=== PATIENT | male | born 1940 | race American Indian/Alaskan Native ===

== ENCOUNTER 2017-05-26 12:40 | Emergency (ER) | payer MEDICARE ==
--- NOTE | 2017-05-26 14:55 | Emergency Department Report ---
Chief Complaint: Alcohol Stated Complaint: HIGH BP Time Seen by Provider: 05/26/17 14:54 - HPI History of Present Illness: Daughter brought patient to the emergency room for the patient sits all day without eating. She said that he's been drinking gin all day for over 35 years. She says he can drink anywhere from 1 pint to a liter per day with beer. Patient denies smoking. Reports that the patient is incontinent and refusing to take medication. Patient does not have a primary care doctor. Patient reports that he is dizzy with blurred vision but denies any headache at present but reports that he gets headaches sometimes. Denies any chest pain at present. Pain is 0-10 at present. Patient walks without a cane sometimes. Daughter said that patient sometime is aggressive and is noncompliant. He has a history of high blood pressure and his blood pressure today is 199/107. He denies any chest pain or shortness of breath at present. Denies any abdominal pain. Last all clot intake was this morning per patient. Denies any bleeding in rectally, nasally, orally or from any orifices in his body. - ROS Review of Systems: All systems are negative unless stated in HPI above - Exam Vital Signs: Vital Signs 05/26/17 13:33 Temperature 98 F Pulse Rate 87 Respiratory 20 Rate Blood Pressure 199/107 O2 Sat by Pulse 99 Oximetry Physical Exam: This is a 76-year-old male well-nourished well-developed in no acute distress. Abdomen: Nontender to palpate in all quadrants. Normal bowel sounds and no CVA tenderness Mini neurological exam: GCS of 15, alert and oriented 3. Speech is clear and no facial drooping. Eyes: Nonicteric sclera, pupils are equal and reactive to light bilaterally and no conjunctival injection. EOM intact bilaterally. MSE screening note: Focused history and physical exam performed. Due to findings the following was ordered:see mdm ED Medical Decision Making - Medical Decision Making MDM: Patient screened by provider in triage area. Appropriate protocol initiated and patient to be seen in main ED by provider ED Disposition for MSE Condition: Stable
[2017-05-26 15:38] LABS: Basophils % (Auto) 0.6 % (0.0-1.8); Eosinophils % (Auto) 0.2 % (0.0-4.3); Hematocrit 41.6 % (35.5-45.6); Hemoglobin 13.3 gm/dl (11.8-15.2); Mean Corpuscular HGB Conc 32 % (32-34); Mean Corpuscular Hemoglobin 29 pg (28-32); Mean Corpuscular Volume 90 fl (84-94); Platelet Count 300 K/mm3 (140-440); Red Blood Count 4.64 M/mm3 (3.65-5.03)
--- NOTE | 2017-05-26 15:42 | Cat Scan Report ---
CT scan of head without IV contrast: History: Lightheaded. Findings: Ventricles are midline in location with moderate dilatation of ventricles secondary to moderate volume loss bilaterally. Periventricular area of low attenuation. Focal area of low attenuation left benjamin radiata probably related to chronic lacunar infarct. No evidence of acute ischemia or hemorrhage. No extra axial fluid collection. Normal brainstem and cerebellum. Normal sinuses and mastoid air cells Impression: No evidence of acute ischemia. Moderate volume loss. Small vessel ischemic changes.
[2017-05-26 15:49] LABS: Creatine Kinase MB 2.7 ng/mL (0.0-4.0); INR 0.99 (0.87-1.13)
[2017-05-26 15:50] LABS: Partial Thromboplastin Time 29.1 Sec. (24.2-36.6)
[2017-05-26 15:51] LABS: Alanine Aminotransferase 9 units/L (7-56); Alkaline Phosphatase 77 units/L (35-129); Anion Gap 17 mmol/L; BUN/Creatinine Ratio 10; Blood Urea Nitrogen 7 mg/dL (9-20); Calcium 9.2 mg/dL (8.4-10.2); Carbon Dioxide 26 mmol/L (22-30); Chloride 97.3 mmol/L (98-107); Glucose 83 mg/dL (75-100); Potassium 3.9 mmol/L (3.6-5.0); Sodium 136 mmol/L (137-145)
[2017-05-26] MEDS ORDERED: APRESOLINE IV ONE (23:43)
[2017-05-27 01:33] LABS: Urine Drugs of Abuse Note Disclamer
[2017-05-27 01:40] LABS: Bilirubin,Urine NEG (Negative); Blood,Urine NEG (Negative); Ketones,Urine TR mg/dL (Negative); Leukocyte Esterase,Urine NEG (Negative); Mucus,Urine 1+ /HPF; Nitrite,Urine NEG (Negative); Protein,Urine <15 mg/dL mg/dL (Negative); Urobilinogen,Urine < 2.0 mg/dL (<2.0)
--- NOTE | 2017-05-27 02:29 | Emergency Department Report ---
HPI <ADAM PRIDE - Last Filed: 05/27/17 13:01> - HPI HPI: This is a 76-year-old Afro-Al[place]ian male presents to the emergency department along with his daughter and son-in-law with the complaint of the inability to continue taking care of him at home and requesting some help with his alcoholism. The daughter says that he sits at home all day without eating and just drinks gin. He refuses to take any medications, does not eat much food and has urinary incontinence. He presents with very elevated blood pressure and does have history of hypertension but does not take any medications for it. He has not seen a primary care physician in many years. He does not use tobacco or any illicit drugs. The patient has about a AAO [address] but not time and family says that this is his baseline mental status. The patient himself just says that he has some dizziness but otherwise no other complaints. <ANJU MCDONOUGH - Last Filed: 05/28/17 16:14> - General Chief Complaint: Alcohol Time Seen by Provider: 05/26/17 14:54 ED Past Medical Hx - Past Medical History Previous Medical History?: Yes Hx Hypertension: Yes - Social History Smoking Status: Never Smoker Substance Use Type: Alcohol <ANJU MCDONOUGH - Last Filed: 05/28/17 16:14> ED Review of Systems ROS: Stated complaint: HIGH BP Other details as noted in HPI <ADAM PRIDE - Last Filed: 05/27/17 13:01> ROS: Stated complaint: HIGH BP Other details as noted in HPI Comment: All other systems reviewed and negative Constitutional: denies: chills, fever Eyes: denies: eye pain, eye discharge, vision change ENT: denies: ear pain, throat pain Respiratory: denies: cough, shortness of breath, wheezing Cardiovascular: denies: chest pain, palpitations Gastrointestinal: denies: abdominal pain, nausea, diarrhea Genitourinary: denies: urgency, dysuria Musculoskeletal: denies: back pain, joint swelling, arthralgia Skin: denies: rash, lesions Neurological: other (dizziness). denies: headache, paresthesias <ANJU MCDONOUGH - Last Filed: 05/28/17 16:14> Physical Exam - Physical Exam Vital Signs: Vital Signs 05/26/17 05/26/17 05/27/17 13:33 22:48 00:05 Temperature 98 F 98.1 F 98.1 F Pulse Rate 87 72 63 Respiratory 20 18 16 Rate Blood Pressure 199/107 217/111 207/96 Blood Pressure 207/96 [Left] O2 Sat by Pulse 99 100 100 Oximetry 05/27/17 05/27/17 05/27/17 01:07 05:30 08:33 Temperature 98.3 F 97.4 F L 97.8 F Pulse Rate 79 100 H 92 H Respiratory 16 16 18 Rate Blood Pressure Blood Pressure 138/75 134/70 138/92 [Left] O2 Sat by Pulse 99 97 100 Oximetry 05/27/17 11:54 Temperature 98.6 F Pulse Rate 94 H Respiratory 18 Rate Blood Pressure Blood Pressure 144/88 [Left] O2 Sat by Pulse 100 Oximetry <ADAM PRIDE - Last Filed: 05/27/17 13:01> - Physical Exam Vital Signs: Vital Signs 05/26/17 05/26/17 05/27/17 13:33 22:48 00:05 Temperature 98 F 98.1 F 98.1 F Pulse Rate 87 72 63 Respiratory 20 18 16 Rate Blood Pressure 199/107 217/111 207/96 Blood Pressure 207/96 [Left] O2 Sat by Pulse 99 100 100 Oximetry 05/27/17 01:07 Temperature 98.3 F Pulse Rate 79 Respiratory 16 Rate Blood Pressure Blood Pressure 138/75 [Left] O2 Sat by Pulse 99 Oximetry Physical Exam: GENERAL: The patient is well-developed well-nourished. HENT: Normocephalic. Atraumatic. Patient has moist mucous membranes. EYES: Extraocular motions are intact. Pupils equal reactive to light bilaterally. NECK: Supple. Trachea is midline. CHEST/LUNGS: Clear to auscultation. There is no respiratory distress noted. HEART/CARDIOVASCULAR: Regular. There is no tachycardia. There is no gallop rub or murmur. ABDOMEN: Abdomen is soft, nontender. Patient has normal bowel sounds. There is no abdominal distention. SKIN: Skin is warm and dry. NEURO: The patient is awake, alert. AAO 2. The patient is cooperative. The patient has no focal neurologic deficits. The patient has normal speech. MUSCULOSKELETAL: There is no tenderness or deformity. There is no limitation range of motion. There is no evidence of acute injury. <ANJU MCDONOUGH - Last Filed: 05/28/17 16:14> ED Course Vital Signs 05/26/17 05/26/17 05/27/17 13:33 22:48 00:05 Temperature 98 F 98.1 F 98.1 F Pulse Rate 87 72 63 Respiratory 20 18 16 Rate Blood Pressure 199/107 217/111 207/96 Blood Pressure 207/96 [Left] O2 Sat by Pulse 99 100 100 Oximetry 05/27/17 05/27/17 05/27/17 01:07 05:30 08:33 Temperature 98.3 F 97.4 F L 97.8 F Pulse Rate 79 100 H 92 H Respiratory 16 16 18 Rate Blood Pressure Blood Pressure 138/75 134/70 138/92 [Left] O2 Sat by Pulse 99 97 100 Oximetry 05/27/17 11:54 Temperature 98.6 F Pulse Rate 94 H Respiratory 18 Rate Blood Pressure Blood Pressure 144/88 [Left] O2 Sat by Pulse 100 Oximetry <ADAM PRIDE - Last Filed: 05/27/17 13:01> Vital Signs 05/26/17 05/26/17 05/27/17 13:33 22:48 00:05 Temperature 98 F 98.1 F 98.1 F Pulse Rate 87 72 63 Respiratory 20 18 16 Rate Blood Pressure 199/107 217/111 207/96 Blood Pressure 207/96 [Left] O2 Sat by Pulse 99 100 100 Oximetry 05/27/17 01:07 Temperature 98.3 F Pulse Rate 79 Respiratory 16 Rate Blood Pressure Blood Pressure 138/75 [Left] O2 Sat by Pulse 99 Oximetry <ANJU MCDONOUGH - Last Filed: 05/28/17 16:14> ED Medical Decision Making - Lab Data Result diagrams: 05/26/17 15:03 05/26/17 15:03 <ADAM PRIDE - Last Filed: 05/27/17 13:01> - Lab Data Result diagrams: 05/26/17 15:03 05/26/17 15:03 - Radiology Data Radiology results: report reviewed CT scan of head without IV contrast: History: Lightheaded. Findings: Ventricles are midline in location with moderate dilatation of ventricles secondary to moderate volume loss bilaterally. Periventricular area of low attenuation. Focal area of low attenuation left benjamin radiata probably related to chronic lacunar infarct. No evidence of acute ischemia or hemorrhage. No extra axial fluid collection. Normal brainstem and cerebellum. Normal sinuses and mastoid air cells Impression: No evidence of acute ischemia. Moderate volume loss. Small vessel ischemic changes. EXAM: US TESTICULAR DOPPLER COMP HISTORY: Testicular pain. TECHNIQUE: Directed real-time grayscale and color Doppler ultrasound examination of the scrotum was performed. No prior studies are available for comparison. FINDINGS: The right testis measures 2.6 x 2.2 x 2.8 cm, and is homogeneous in echotexture, without discrete lesion. The right epididymal head measures approximately 1.5 cm. The left testis measures 2.8 x 1.8 x 2.6 cm, and is homogeneous in echotexture, without discrete lesion. The left epididymal head measures approximately 1.2 cm. There is a cyst in the left epididymal head, measuring 0.6 x 0.5 x 0.4 cm. Appropriate color vascularity seen within both testes, with normal appearing waveforms. There is evidence of torsion or epididymo-orchitis. There is a small right hydrocele. IMPRESSION: 1. No evidence of testicular torsion or epididymo-orchitis. 2. Subcentimeter left epididymal head cyst. Small right hydrocele. - Medical Decision Making This is a 76-year-old male who presents up with his family for possible placement or for alcohol rehabilitation. The patient is AAO 2 but that is his baseline per the family. His alcohol level was negative and there are no signs of withdrawal. He does not appear to have any suicidal or homicidal ideations and he is not having any auditory or visual hallucinations. He was seen briefly by the crisis/behavioral counselor who agreed that the patient does not make criteria for a 1013. Also there is no inpatient alcohol rehabilitation center that can help him as he also need some assisted living due to his baseline dementia and/or his urinary incontinence. His labs are unremarkable. Vital signs stable. CT of the head did not show any bleed, shift, mass or any acute process. Testicular ultrasound was done after he complained of a few weeks of some intermittent testicular or scrotal pain and it did not show any torsion or any acute process other than a small epididymal cyst and small hydrocele. He does not meet any criteria for inpatient medical admission. For this reason he was given a case management consultation. They were able to arrange for a personal fdc but the family did not want this. Their wishes were for a nursing facility with 24-hour monitoring. They were notified that this could not be done through the emergency department and the patient does not meet criteria for a 3 night inpatient medical admission. They decided to bring him home upon discharge and they will work on facilitating a transfer to a nursing facility. <ANJU MCDONOUGH - Last Filed: 05/28/17 16:14> Critical care attestation.: If time is entered above; I have spent that time in minutes in the direct care of this critically ill patient, excluding procedure time. <ADAM PRIDE - Last Filed: 05/27/17 13:01> Critical Care Time: No Critical care attestation.: If time is entered above; I have spent that time in minutes in the direct care of this critically ill patient, excluding procedure time. <ANJU MCDONOUGH - Last Filed: 05/28/17 16:14> ED Disposition Is pt being admited?: No <ADAM PRIDE - Last Filed: 05/27/17 13:01> Is pt being admited?: No <ANJU MCDONOUGH - Last Filed: 05/28/17 16:14> Clinical Impression: Discharge planning issues, Alcoholism Hypertension Qualifiers: Hypertension type: essential hypertension Qualified Code(s): I10 - Essential ( primary) hypertension Disposition: -01 TO HOME OR SELFCARE Condition: Stable Instructions: Hypertension (ED) Referrals: SHANE HOLLEY MD [Other] - 3-5 Days Forms: Accompanied Note, Work/School Release Form(ED)
--- NOTE | 2017-05-27 04:14 | Ultrasound Report ---
FINAL REPORT EXAM: US TESTICULAR DOPPLER COMP HISTORY: Testicular pain. TECHNIQUE: Directed real-time grayscale and color Doppler ultrasound examination of the scrotum was performed. No prior studies are available for comparison. FINDINGS: The right testis measures 2.6 x 2.2 x 2.8 cm, and is homogeneous in echotexture, without discrete lesion. The right epididymal head measures approximately 1.5 cm. The left testis measures 2.8 x 1.8 x 2.6 cm, and is homogeneous in echotexture, without discrete lesion. The left epididymal head measures approximately 1.2 cm. There is a cyst in the left epididymal head, measuring 0.6 x 0.5 x 0.4 cm. Appropriate color vascularity seen within both testes, with normal appearing waveforms. There is evidence of torsion or epididymo-orchitis. There is a small right hydrocele. IMPRESSION: 1. No evidence of testicular torsion or epididymo-orchitis. 2. Subcentimeter left epididymal head cyst. Small right hydrocele.
[2017-05-27 14:57] VITALS: BP 158/90
== END 2017-05-27 15:03 | disposition home or self-care (01) ==
LOC: ED 12:40
DX: F10.129 Alcohol abuse with intoxication, unspecified (principal); I10 Essential (primary) hypertension
CPT/HCPCS: 36415; 70450; 80053; 80307; 81001; 82550; 82553; 82962; 84484; 85025; 85610; 85730; 86850; 86900; 86901; 93005; 93010; 93975; 96374; 99284; G0480; J0360; 80320